=== PATIENT | male | born 1970 | race African-American/Black ===

== ENCOUNTER 2016-12-20 07:33 | Day surgery (SDC) | payer OTHER ==
--- NOTE | 2016-12-08 11:45 | HP ---
PREPROCEDURE NOTE DATE OF ADMISSION: Patient will be admitted through the ambulatory surgical service on 12/20/16. HISTORY: This is a 46-year-old man who for the past couple months has been experiencing intermittent right groin discomfort. He was told he had a right inguinal hernia. On examination, he had a reducible right inguinal hernia as well as a smaller but obvious left inguinal hernia. The patient presents for bilateral laparoscopic inguinal hernia repair with mesh. No underlying GI, , or respiratory complaints to suggest predisposition to hernia formation. PAST MEDICAL HISTORY: Significant only for hypertension. No history of heart disease, diabetes, respiratory, renal, or hepatic insufficiency. PAST SURGICAL HISTORY: Nil. ALLERGIES: None known. REGULAR MEDICATIONS: Verapamil. SOCIAL HISTORY: Positive tobacco, less than a pack per day. A small amount of alcohol on occasion. FAMILY HISTORY: Not available. REVIEW OF SYSTEMS: Nil. PHYSICAL EXAMINATION: Abdomen: Patient examined in the erect and supine positions. There are two obvious, moderate-sized inguinal hernias noted. They are reducible. Scrotum: Unremarkable. IMPRESSION: Bilateral inguinal hernias, right symptomatic and slightly larger than left. PLAN: Bilateral laparoscopic inguinal hernia repair with mesh. If the procedure cannot be accomplished laparoscopically, the patient is will undergo open right inguinal hernia repair with mesh. Indications, alternatives, possible complications reviewed. Consent obtained. Patient will be seen preoperatively by Dr. Gabriel Escobedo. Please refer to his medical notes for those details. Sandi [id number] cc: Gabriel Escobedo M.D. MTDD
[2016-12-19 12:08] VITALS: BMI 25.4
[2016-12-20] MEDS ORDERED: TAMSULOSIN HCL 0.4 MG CAP.ER.24H (FP) ONE (08:02)
[2016-12-20] MEDS ORDERED: ceFAZolin SODIUM 1 GM VIAL ONE (08:03)
[2016-12-20] MEDS ORDERED: TAMSULOSIN HCL 0.4 MG CAP.ER.24H (FP) PO ONE (08:18)
[2016-12-20] MEDS ORDERED: ONDANSETRON 4 MG/2 ML VIAL IVPUSH PRN (10:31)
[2016-12-20] MEDS ORDERED: PROMETHAZINE HCL 25 MG/1 ML VIAL IVPUSH PRN (10:31)
[2016-12-20] MEDS ORDERED: oxyCODONE HCL 5 MG TABLET PO PRN (10:31)
[2016-12-20] MEDS ORDERED: MIDAZOLAM HCL 2 MG/2 ML SINGLE DOSE VIAL ONE ×3 (10:39→12:08)
[2016-12-20] MEDS ORDERED: ROCURONIUM BROMIDE 50 MG/5 ML VIAL ONE ×2 (10:43→11:22)
[2016-12-20] MEDS ORDERED: PROPOFOL 20 ML ONE ×2 (10:44)
[2016-12-20] MEDS ORDERED: ceFAZolin SODIUM 1 GM VIAL IVPB ONE (10:48)
[2016-12-20] MEDS ORDERED: DESFLURANE GAS 240 ML BOTTLE IH ONE (10:54)
[2016-12-20] MEDS ORDERED: DEXAMETHASONE SOD PHOSPHATE 4 MG/1 ML VIAL ONE (11:23)
[2016-12-20] MEDS ORDERED: LIDOCAINE HCL/PF 2% SDV 5ML VIAL ONE (11:27)
[2016-12-20] MEDS ORDERED: GLYCOPYRROLATE 0.2 MG/1 ML VIAL ONE (11:27)
[2016-12-20] MEDS ORDERED: NEOSTIGMINE METHYLSULFATE 0.5 MG/ML - 10 ML MDV ONE (11:27)
[2016-12-20] MEDS ORDERED: KETOROLAC TROMETHAMINE 30 MG/1 ML VIAL ONE (11:57)
[2016-12-20 14:10] VITALS: TEMP 98
[2016-12-20] MEDS ORDERED: oxyCODONE HCL 5 MG TABLET ONE (14:40)
[2016-12-20 16:19] VITALS: BP 147/90; PULSE 80
--- NOTE | 2016-12-20 21:31 | OP ---
DATE OF OPERATION: 12/20/2016 PREOPERATIVE DIAGNOSIS: Bilateral inguinal hernias. POSTOPERATIVE DIAGNOSIS: Bilateral indirect inguinal hernias. PROCEDURE: Bilateral laparoscopic inguinal hernia repair with mesh. OPERATING SURGEON: Francisco Nesbitt MD CONVEYOR MONITOR: Devang Chow MD ANESTHESIA: Fiorella Dumont M.D. (general) HISTORY: A 46-year-old man who presents for bilateral laparoscopic inguinal hernia repair. Indications, alternatives, possible complications reviewed. Consent obtained. PROCEDURE: With the patient in the supine position, and after general anesthesia, the abdomen was prepped and draped in sterile fashion using chlorhexidine. A small incision was made just beneath the umbilicus and off to the right of the midline. Subcutaneous tissues were . The anterior rectus sheath was incised. The rectus muscle fibers were retracted laterally in both directions, exposing the preperitoneal space. A dissecting balloon was advanced in the preperitoneal space toward the pubis. The balloon was insufflated, creating the dissection. The balloon was removed, leaving structural collar in place. The preperitoneal space was insufflated to an adequate pressure and volume using CO2 gas. The camera lens was passed through this port and the preperitoneal space visualized. Under direct vision, an 11-mm port was placed in the midline, midway between the umbilicus and the pubis. The operating instruments passed through this port.' Exploration of the preperitoneal space allowed recognition of the anatomy. There were bilateral indirect hernias noted. There were no direct or femoral components noted. First directing our attention to the left side, with skeletonization of the cord , the indirect component was reduced. The left side was repaired using a piece of 4- inch x 6-inch Parietex mesh. The mesh was keyholed in place in the preperitoneal space. It was tacked in place with counter palpation and AbsorbaTack. The mesh was fixed anterior to the anterior abdominal wall. The mesh was fixed superiorly to the iliopubic tract. The mesh was fixed inferiorly to the Aydin ligament and pubic tubercle. The keyholed leaf was wrapped around the cord and tacked in place, reconstructing the internal ring. Now directing our attention to the right side, again the indirect component was reduced with skeletonization of the cord. The right side was repaired with the same mesh and technique as described above for the left. After completion of the repair, the mesh was noted to overlap in the midline. No bleeding was identified. The low midline port was removed and no bleeding noted at that port site. Ultimately the camera lens and structural port were removed and the gas was allowed to escape from the preperitoneal space. The fascia at each of the port sites was closed using 0 Vicryl sutures. Both skin wounds were closed using subcuticular 4-0 Biosyn sutures. Instrument count correct. Estimated blood loss minimal. SPECIMEN: None. IMPLANT: Parietex mesh x2. DRAINS: None. The patient tolerated the procedure. The procedure was terminated. FRANCISCO NESBITT M.D. JOSE [id number] MTDD
== END 2016-12-20 15:15 | disposition home or self-care (01) ==
LOC: JASU-SURG 07:33
PROVIDERS: ATTEND Surgery
PROC: 0YUA4JZ Supplement Bilateral Inguinal Region with Synthetic Substitute, Percutaneous Endoscopic Approach (ICD-10-PCS; principal; 2016-12-20 09:00)
DX: K40.20 Bilateral inguinal hernia, without obstruction or gangrene, not specified as recurrent (principal)
CPT/HCPCS: 94760

== ENCOUNTER 2018-05-08 08:26 | Inpatient (IN) | payer OTHER ==
--- NOTE | 2018-04-30 15:26 | HP ---
HISTORY: This is a 48-year-old man who is to be admitted to the hospital for surgical management of a recurrent ventral hernia. According to the patient, he had undergone initial abdominal wall hernia repair while in the back in the . He more recently went on to develop a recurrent bulge at the level of the upper midline, abdomen, and umbilical region. On examination, he has an obvious recurrent, chronically incarcerated ventral hernia. No underlying GI, , or respiratory complaints to suggest predisposition of hernia formation. PAST MEDICAL HISTORY: Significant for hypertension. Negative for heart disease, diabetes, respiratory, renal, or hepatic insufficiency. PAST SURGICAL HISTORY: Significant for his ventral hernia repair in the . Patient cannot recall whether mesh was or was not placed at that time. He has also had a more recent bilateral laparoscopic inguinal hernia repair with mesh. REGULAR MEDICATIONS: Verapamil. ALLERGIES: None known. SOCIAL HISTORY: Positive for tobacco, less than a pack per day. Occasional alcohol. FAMILY HISTORY: Nil. REVIEW OF SYSTEMS: Nil. PHYSICAL EXAMINATION: Abdomen: Obvious midline scar noted stemming from the surpraumbilical midline to the infraumbilical midline. Herniation throughout the length of that scar noted with irreducible portion involving the central portion of the scar itself. Groins are intact. IMPRESSION: Recurrent chronically incarcerated ventral hernia. PLAN: Reduction repair of chronically incarcerated recurrent ventral hernia with mesh, with mesh, possible bilateral component separation. Indications, alternatives, possible complications were reviewed. Consent obtained. Patient is to be seen preoperatively by his PMD. Please refer to those notes for those medical details. FRANCISCO LOUIS M.D. JOSE [id number]
[2018-05-07 08:54] VITALS: BMI 24.3
[2018-05-08] MEDS ORDERED: TAMSULOSIN HCL 0.4 MG CAP ONE (08:56)
[2018-05-08] MEDS ORDERED: ceFAZolin SODIUM 1 GM VIAL ONE (08:56)
[2018-05-08] MEDS ORDERED: DEXAMETHASONE SOD PHOSPHATE/PF 10 MG/ML SDV ONE (09:35)
[2018-05-08] MEDS ORDERED: BUPIVACAINE HCL/PF 0.5% (5MG/ML) 10 ML VIAL ONE (09:35)
[2018-05-08] MEDS ORDERED: MIDAZOLAM HCL 2 MG/2 ML SINGLE DOSE VIAL ONE (09:54)
[2018-05-08] MEDS ORDERED: ROCURONIUM BROMIDE 50 MG/5 ML VIAL ONE ×2 (09:55→10:37)
[2018-05-08] MEDS ORDERED: fentaNYL CITRATE 250 MCG/5 ML VIAL ONE (09:55)
[2018-05-08] MEDS ORDERED: PROPOFOL 20 ML ONE (09:55)
[2018-05-08] MEDS ORDERED: ACETAMINOPHEN 325 MG TABLET (FP) PO PRN (09:56)
[2018-05-08] MEDS ORDERED: oxyCODONE HCL 5 MG TABLET PO PRN (09:56)
[2018-05-08] MEDS ORDERED: D5-1/2NS+20 MEQ KCL - 20 MEQ/1,000 ML INFUS.BAG IV SCH (10:00)
[2018-05-08] MEDS ORDERED: ENOXAPARIN NA (PORCINE) 40 MG/0.4 ML DISP.SYRIN SQ SCH (10:00)
[2018-05-08] MEDS ORDERED: PANTOPRAZOLE SODIUM 40 MG VIAL IVPUSH SCH (10:00)
[2018-05-08] MEDS ORDERED: ceFAZolin SODIUM 1 GM VIAL IVPB ONE ×2 (10:10→10:15)
[2018-05-08] MEDS ORDERED: LIDOCAINE HCL/PF 2% SDV 5ML VIAL ONE (11:51)
[2018-05-08] MEDS ORDERED: NEOSTIGMINE METHYLSULFATE 0.5 MG/ML - 10 ML MDV ONE (11:51)
[2018-05-08] MEDS ORDERED: DEXAMETHASONE SOD PHOSPHATE 4 MG/1 ML VIAL ONE (11:51)
[2018-05-08] MEDS ORDERED: ONDANSETRON 4 MG/2 ML VIAL ONE (11:51)
[2018-05-08] MEDS ORDERED: GLYCOPYRROLATE 0.2 MG/1 ML VIAL ONE ×2 (11:51→11:53)
[2018-05-08] MEDS ORDERED: BUPIVACAINE HCL/PF (5 MG/ML) 30 ML VIAL IJ ONE (11:54)
[2018-05-08] MEDS ORDERED: ACETAMINOPHEN INJECTION 100 ML IVPB ONE (12:30)
[2018-05-08] MEDS ORDERED: PROMETHAZINE HCL 25 MG/1 ML VIAL IVPB PRN (12:39)
[2018-05-08] MEDS ORDERED: ONDANSETRON 4 MG/2 ML VIAL IVPUSH PRN (12:39)
[2018-05-08] MEDS ORDERED: ACETAMINOPHEN 1000 MG/100 ML VIAL (NON FORMULARY) IVPB ONE (12:40)
[2018-05-08] MEDS ORDERED: MIDAZOLAM HCL 2 MG/2 ML SINGLE DOSE VIAL IVPUSH ONE (12:41)
[2018-05-08] MEDS ORDERED: LORazepam 2 MG/ML SDV VIAL ONE (12:45)
[2018-05-08] MEDS ORDERED: LACTATED RINGERS SOLUTION 1,000 ML IV SCH (12:45)
[2018-05-08] MEDS: LORazepam 2 MG/ML SDV VIAL IVPUSH SCH ×2 (13:30→13:45)
--- NOTE | 2018-05-08 19:25 | OP ---
DATE OF OPERATION: 05/08/2018 PREOPERATIVE DIAGNOSIS: Recurrent chronically incarcerated complex incisional/ventral abdominal wall hernia. POSTOPERATIVE DIAGNOSIS: Recurrent chronically incarcerated complex incisional/ventral abdominal wall hernia. PROCEDURE: Open bilateral component separation repair complex recurrent incisional ventral/incisional abdominal wall hernia with mesh/partial omentectomy/rectus sheath block. OPERATING SURGEON: Harley Nesbitt M.D. EXECUTIVE STEWARD: Devang Chow M.D. ANESTHESIA: General. ANESTHESIOLOGIST: Fiorella Dumont M.D. HISTORY: This is a 48-year-old man who presents with an obvious complex anterior abdominal wall hernia. Patient had undergone prior repair while in the . He has gone on to develop herniation throughout the wound. He presents for formal management. Indications, alternatives, possible complications reviewed. Consent obtained. DESCRIPTION OF PROCEDURE: A midline incision was made in the preexisting scar which began above the umbilicus for several inches and extended below the umbilicus similarly. Incision was deepened into the subcutaneous space. Hernia sac was easily encountered. The sac was opened and found to contain a portion of chronically incarcerated omentum. A portion of the omentum was excised. Lysis of adhesions ensued at the fascial ring and the remainder of the omentum was reduced. There were several smaller defects both above and below in the midline. The small bridges between all the defects were divided, creating one larger defect. First directed my attention to the right side, the right posterior rectus sheath was from the overlying rectus muscle fibers using blunt and sharp dissection. This dissection was carried out inferiorly, laterally, and superiorly, ultimately arriving at the junction of the rectus musculature with the oblique and transversus musculature. Separation of the overlying right external oblique musculature from the underlying right transversus muscle ensued, creating a plane which was continuous with the retrorectus dissection on the right side. The dissection then continued again in the inferolateral and superior direction. Now directed our attention to the left side, the posterior rectus sheath on the left was from the overlying left rectus muscle fibers. Again, this separation ensued inferiorly, laterally, and medially ultimately again arriving at the junction of the oblique and transversus musculature with the rectus. The left oblique musculature was from the underlying transversus musculature, again creating a space that was continuous with the left retrorectus dissection. Separation continued inferiorly, laterally, and superiorly once again. At this junction, the posterior midline was recreated, approximating the posterior rectus sheath in the midline using a continuous 2-0 V-Loc suture. Adequate hemostasis was insured. Wound was irrigated. A composite mesh was fashioned at the table using a piece of 30 x 30 cm Versatex mesh which was sutured to a piece of 16 x 20 LAURA Bio mesh. This was accomplished using interrupted 3-0 Vicryl sutures. After the mesh was soaked, it was placed in the retrorectus space with LAURA Bio side down and the Versatex side up. It was positioned so that it filled the entire right and left dissection spaces. Prior to that, the mesh was then fixed and placed using counter palpation and absorbant tacker circumferentially. The wound was irrigated and adequate hemostasis once again insured. Ultimately, the anterior rectus sheath was approximated longitudinally using a continuos 0 PDS suture, with 1 suture beginning at each end of the wound and the suture ultimately tied at the wound mid point. This left mesh entirely in the retrorectus space. A Jayson-Jeffrey drain was then left in the patient's subcutaneous space in the right lower quadrant was tacked to the skin with 2-0 silk suture material. After adequate hemostasis, the wound was closed using metallic clips to approximate the skin. Ultimately Dermabond was applied and ultimately dressings. Needle, sponge, instrument count correct. Estimated blood loss minimal. Specimen portion of omentum. Rectus sheath block accomplished intraoperatively. DRAINS: 1 MO Patient tolerated the procedure, and the procedure was terminated. Sandi [id number] Cc: Sandi Yepez
[2018-05-08] MEDS ORDERED: morphine SULFATE 4 MG/ML VIAL ONE ×2 (19:35→21:07)
[2018-05-08] MEDS: morphine SULFATE 4 MG/ML VIAL IVPB PRN ×3 (19:37→23:57)
[2018-05-08] MEDS ORDERED: VERAPAMIL HCL 120 MG E.R. TABLET PO SCH (22:00)
[2018-05-09] MEDS: morphine SULFATE 4 MG/ML VIAL IVPB PRN (03:09)
--- NOTE | 2018-05-09 08:26 | DS ---
DATE OF ADMISSION: 05/08/2018 DATE OF DISCHARGE: 05/09/2018 ADMITTING DIAGNOSIS: Complex incisional hernia. POSTOPERATIVE DIAGNOSIS: Complex incisional hernia. BRIEF HISTORY: This is a 48-year-old male who presented to [facility] for surgical management of a complex incisional hernia. Please reference Dr. Harley Nesbitt's operative report, but essentially underwent repair of this hernia utilizing mesh as well as component separation and myofascial release. Postoperatively, he did well. His pain was controlled with narcotics. He will go home today with a prescription of Percocet which he will take as needed for pain. He will go home with a Jayson-Jeffrey drain which he will empty daily and record the amount. He will follow with Dr. Nesbitt in approximately 1 week's time to be evaluated for Jayson-Jeffrey drain removal. He will resume his usual home medications of verapamil and vitamin D3. He will sponge bathe. He will not lift anything more than 20 pounds. He is okay to walk, okay to climb stairs. He will likely require 2 weeks off from work. At the time of his discharge he is ambulating, voiding, and tolerating diet. He will go home on a regular diet. DO RAOUL JARQUIN/[id number]
[2018-05-09 12:55] VITALS: BP 145/97; PULSE 85; TEMP 98.7
--- NOTE | 2018-05-09 15:14 | PN ---
Progress Note (short form) - Note Progress Note: Anesthesia post op note, POD#1, S/P complex hernia repair.VSS. No post anesthesia complications reported. Pat discharged to home.
[2018-05-09] MEDS ORDERED: VERAPAMIL HCL 180 MG E.R. TABLET (FP) PO SCH (22:00)
--- NOTE | 2018-05-10 15:15 | PATH ---
Surgical Pathology Report Patient Name: RAQUEL BOGGS [facility]. Rec. #: [id number] /Age/Gender: 1970 (Age: 48) / M Account: [id number] Location: [address] [place] [address] Taken: 05/08/2018 Received: 05/08/2018 Reported: 05/10/2018 Physicians: Harley Nesbitt M.D. Specimen(s) Received PORTION OF OMENTUM Clinical History Complex ventral hernia Final Diagnosis PORTION OF OMENTUM, EXCISION: PORTION OF FIBROADIPOSE TISSUE WITH NO SIGNIFICANT PATHOLOGIC CHANGE. Electronically Signed Segundo Rae M.D. Gross Description Received in formalin labeled "portion of omentum," is a 5.5 x 3.5 x 2.2 cm portion of yellow, lobulated adipose tissue with attached chase fibromembranous tissue. A patient portal representative section is submitted in one cassette. /05/08/201805/08/2018
== END 2018-05-09 11:24 | disposition home or self-care (01) | DRG 355 ==
LOC: JASUSAT 08:26 → JSAMEDAYSX 09:56 → J6S 21:23
PROVIDERS: ADMIT Surgery; ATTEND Surgery
PROC: 0DBU0ZZ Excision of Omentum, Open Approach (ICD-10-PCS; 2018-05-08)
PROC: 0WUF0JZ Supplement Abdominal Wall with Synthetic Substitute, Open Approach (ICD-10-PCS; principal; 2018-05-08 08:00)
DX: K43.0 Incisional hernia with obstruction, without gangrene (principal); I10 Essential (primary) hypertension; K66.0 Peritoneal adhesions (postprocedural) (postinfection)
CPT/HCPCS: 88302-TC; 94010; 94760; J0131